=== PATIENT | female | born 1985 | race Caucasian/White ===

== ENCOUNTER 2016-09-07 10:35 | Emergency (ER) | payer OTHER ==
[2016-09-07 12:28] LABS: HEMOGLOBIN 15.6 gm/dl (12.3-15.3); RED BLOOD COUNT 5.5 M/UL (4.00-5.10); WHITE BLOOD COUNT 15.4 K/UL (4.5-11.0)
[2016-09-07 12:58] LABS: BUN/CREATININE RATIO 14 (0-10)
[2017-02-24] MEDS ORDERED: ARMOUR THYROID15 MG PO (13:20)
[2017-02-24] MEDS ORDERED: NORCO 5-325 TA1 EACH PO ×2 (13:20→16:26)
[2017-02-24] MEDS ORDERED: DOXYCYCLINE (13:22)
[2017-02-24] MEDS ORDERED: KEFLEX500 MG PO (16:26)
== END 2016-09-07 15:50 | disposition home or self-care (01) ==
LOC: ER1 10:35
PROVIDERS: Emergency Medicine
DX: K52.9 Noninfective gastroenteritis and colitis, unspecified (principal); E86.0 Dehydration; Z88.2 Allergy status to sulfonamides
CPT/HCPCS: 36415; 71010; 80053; 80307; 81001; 82550; 82553; 83605; 83690; 83874; 84484; 84703; 85025; 85610; 85730; 87086; 96360; 99284; J7050; Q9962

== ENCOUNTER 2017-02-20 17:04 | Emergency (ER) | payer OTHER | END 2017-02-20 20:56 | disposition home or self-care (01) | LOC: ER1 17:04 | DX: S61.210A Laceration without foreign body of right index finger without damage to nail, initial encounter (principal); S66.120A Laceration of flexor muscle, fascia and tendon of right index finger at wrist and hand level, initial encounter; W45.8XXA Other foreign body or object entering through skin, initial encounter; Y92.009 Unspecified place in unspecified non-institutional (private) residence as the place of occurrence of the external cause; Z23 Encounter for immunization | CPT/HCPCS: 12001; 73140; 90471; 90715; 96372; 99283; J0690 ==

== ENCOUNTER → 2021-05-26 | Outpatient (CLI) | payer OTHER ==
[~2021-05-26] MED LIST: ARMOUR THYROID15 MG PO; ARMOUR THYROID90 MG PO; DOXYCYCLINE; KEFLEX500 MG PO; LEXAPRO5 MG PO; METFORMIN HCL500 MG PO; NORCO 5-325 TA1 EACH PO; NORETHINDRONE 5MG PO; SPIRONOLACTONE100 MG PO; TESTOSTERONE CREAM VG
[2021-05-26 13:35] LABS: HEMOGLOBIN 15.2 gm/dl (12.3-15.3); RED BLOOD COUNT 5.27 M/UL (4.00-5.10); WHITE BLOOD COUNT 10.8 K/UL (4.5-11.0)
[2021-05-26 14:09] LABS: BUN/CREATININE RATIO 15 (0-10)
== END ==
LOC: OPSV2 12:30
PROVIDERS: Anesthesiology; Obstetrics & Gynecology
DX: Z01.812 Encounter for preprocedural laboratory examination (principal); N93.9 Abnormal uterine and vaginal bleeding, unspecified
CPT/HCPCS: 36415; 80048; 81001; 85025

== ENCOUNTER → 2021-06-02 | Day surgery (SDC) | payer OTHER | END | disposition home or self-care (01) | LOC: OR 05:24 | DX: D25.1 Intramural leiomyoma of uterus (principal); N80.0 Endometriosis of uterus; R87.612 Low grade squamous intraepithelial lesion on cytologic smear of cervix (LGSIL); N93.9 Abnormal uterine and vaginal bleeding, unspecified; K21.9 Gastro-esophageal reflux disease without esophagitis; K44.9 Diaphragmatic hernia without obstruction or gangrene; E03.9 Hypothyroidism, unspecified; Z90.49 Acquired absence of other specified parts of digestive tract; Z88.2 Allergy status to sulfonamides; Z79.84 Long term (current) use of oral hypoglycemic drugs; Z79.899 Other long term (current) drug therapy | CPT/HCPCS: 36415; 84702; J0690; J1100; J1170; J1885; J2001; J2250; J2405; J2704; J2710; J2795; J3010; J7120 ==